=== PATIENT | male | born 1995 | race Two or more races ===

== ENCOUNTER 2024-07-15 12:58 | Emergency (ER) | payer OTHER ==
[~2024-07-15] VITALS: Ht 167.6 cm; Wt 88.5 kg
[2024-07-15] MEDS ORDERED: MOUNJARO5 MG/0.5 M SQ (13:05)
[2024-07-15] MEDS ORDERED: LANTUS SOL100 UNIT/1 SQ (13:05)
[2024-07-15 13:06] VITALS: BP 132/87; O2SAT 100
[2024-07-15] MEDS ORDERED: FAMOTIDINE/PF 20 MG in 0.9 % SODIUM CHLORIDE 8 ML IV PUSH STA (13:09)
[2024-07-15] MEDS ORDERED: METOCLOPRAMIDE HCL 10 MG in DEXTROSE 5 % IN WATER 50 ML IV ONE (13:15)
[2024-07-15] MEDS ORDERED: 0.9 % SODIUM CHLORIDE 1,000 ML IV SCH (13:15)
[2024-07-15 13:46] LABS: HEMATOCRIT 40.1 % (39.0-48.0); HEMOGLOBIN 13.2 g/dL (13-16.00); MEAN CELL VOLUME 85.7 fL (80.0-100.00); MEAN CORPUSCULAR HEMOGLOBIN 28.1 pg (27.00-32.0); MEAN CORPUSCULAR HGB CONC 32.8 g/dl (32.0-36.0); PLATELET COUNT 163 K/uL (150-450); RED BLOOD COUNT 4.69 M/uL (4.00-6.00); RED CELL DISTRIBUTION WIDTH 13.4 % (11.5-14.5)
[2024-07-15 14:22] LABS: URINE APPEARANCE Clear; URINE BILIRRUBIN Negative (NEGATIVE); URINE BLOOD Negative; URINE COLOR Yellow; URINE LEUKOCYTE Negative; URINE NITRATE Negative; URINE PROTEIN Negative (NEGATIVE)
[2024-07-15 14:23] LABS: URINE BACTERIA 17.1 uL (0.0-1933); URINE EPITHELIAL CELLS 1.4 uL (0.0-38.8); URINE WBC 4.5 uL (0.0-23.2)
[2024-07-15 14:26] LABS: URINE CAST 0.14 uL (0.0-1.40); URINE RBC 0.4 uL (0.0-20.8)
[2024-07-15 14:27] LABS: URINE GLUCOSE >=1000 MG/DL (NEGATIVE); URINE KETONE 80 (NEGATIVE)
[2024-07-15 14:29] LABS: ALBUMIN 3.4 gm/dL (3.4-5.0); BILIRUBIN TOTAL 0.36 mg/dL (0.3-1.2); CALCIUM 8.8 mg/dL (8.5-10.1); CREATININE SERUM 0.94 mg/dL (0.70-1.30); GFR 93.6; GLOBULINA 3.8 G/DL (2.4-3.5); POTASSIUM 3.72 mEq/L (3.5-5.1); TOTAL PROTEIN 7.2 gm/dL (6.4-8.2)
[2024-07-15 14:38] LABS: ABG PH 7.467 (7.35-7.45); ABG PO2 79.2 mmHg (80-100); ABG pCO2 30.7 mmHg (35-45); BASE EXCESS -0.9 mmol/l; BICARBONATE 21.7 mmol/l (23-25); SaO2 96.4 %; Tco2 22.6 mmol/l; o2 21 %
[2024-07-15 14:41] LABS: allen test SATISFACTORY; puncture site RADIAL RIGHT
[2024-07-15] MEDS ORDERED: ONDANSETRON ODT8 MG PO (15:52)
[2024-07-15] MEDS ORDERED: OSEL75CA PO (15:52)
[2024-07-15] MEDS ORDERED: PEPCID AC20 MG PO (15:52)
[2024-07-15] MEDS ORDERED: TUSNEL LIQUID178 ML PO (15:52)
[2024-07-15] MEDS ORDERED: OSELTAMIVIR PHOSPHATE 75 MG CAPSULE PO ONE ×2 (15:59→16:00)
[2024-07-15] MEDS ORDERED: ONDANSETRON HCL 2 MG/ML VIAL IV ONE (16:00)
[2024-07-15] MEDS ORDERED: ONDANSETRON HCL 2 MG/ML VIAL ONE (16:00)
== END 2024-07-15 16:10 | disposition home or self-care (01) ==
LOC: ER 12:58
PROVIDERS: General Practice
DX: J10.1 Influenza due to other identified influenza virus with other respiratory manifestations (principal); E11.9 Type 2 diabetes mellitus without complications; Z79.4 Long term (current) use of insulin; I10 Essential (primary) hypertension; Z20.822 Contact with and (suspected) exposure to COVID-19